=== PATIENT | female | born 1945 | race Caucasian/White ===

== ENCOUNTER → 2020-01-14 | Outpatient (CLI) | payer MEDICARE, OTHER ==
[~2020-01-14] MED LIST: EDARBYCLOR 40-1 EACH PO; LEVOTHYROXINE75 MCG PO; METOPROLOL TAR100 MG PO
--- NOTE | 2020-01-14 11:53 | Diagnostic Imaging Report ---
EXAMINATION: CHEST 2 VIEWS INDICATION: Renal malignancy COMPARISON: Chest radiograph 10/06/2019 FINDINGS: LINES/TUBES:None LUNGS:The lungs are well-inflated. No focal consolidation or pulmonary edema. PLEURA:No pleural effusion or pneumothorax. MEDIASTINUM:The cardiomediastinal silhouette appears normal in size and shape. BONES/SOFT TISSUES:No acute osseous injury. ABDOMEN:No free air under the diaphragm. IMPRESSION: No focal pneumonia or pulmonary edema. No radiographically apparent pulmonary nodule. Signed by: Moshe Myers MD on 01/14/2020 11:50 AM
--- NOTE | 2020-01-14 12:29 | Diagnostic Imaging Report ---
EXAM: Renal Ultrasound INDICATION: ^[id number] ^[id number] ^NEOPLASM OF LEFT KIDNEY COMPARISON: None TECHNIQUE: Transverse and longitudinal images of the kidneys and bladder were obtained. FINDINGS: Right Kidney: Length: 9.1 cm Appearance: Normal echogenicity. Collecting system: No hydronephrosis Stones: None Cyst/Mass: Peripelvic cysts measure up to 1.6cm Left Kidney: Length: 8.3 cm Appearance: Normal echogenicity. Collecting system: No hydronephrosis Stones: None Cyst/Mass: None Bladder: No mass or calculi. Bilateral ureteral jets visualized. Prevoid volume estimate of 33 cc. IMPRESSION: No hydronephrosis or renal calculi. Right peripelvic cysts and left simple cyst as above. Signed by: Moshe Myers MD on 01/14/2020 12:26 PM
== END ==
LOC: US 10:37
PROVIDERS: ATTEND Urology
DX: D41.02 Neoplasm of uncertain behavior of left kidney (principal)
CPT/HCPCS: 71046; 76770

== ENCOUNTER → 2020-04-01 | Outpatient (CLI) | payer MEDICARE, OTHER ==
--- NOTE | 2020-04-01 10:04 | Diagnostic Imaging Report ---
EXAMINATION: CHEST 2 VIEWS INDICATION: Renal malignancy COMPARISON: Chest radiograph 01/14/2020 FINDINGS: LINES/TUBES:None LUNGS:The lungs are well-inflated. No focal consolidation or pulmonary edema. PLEURA:No pleural effusion or pneumothorax. MEDIASTINUM:The cardiomediastinal silhouette appears normal in size and shape. Atherosclerotic calcifications of the thoracic aorta. BONES/SOFT TISSUES:No acute osseous injury. ABDOMEN:No free air under the diaphragm. Surgical clips in the left abdomen. IMPRESSION: No focal pneumonia or pulmonary edema. Signed by: Moshe Myers MD on 04/01/2020 10:01 AM
--- NOTE | 2020-04-01 11:19 | Diagnostic Imaging Report ---
EXAM: Renal Ultrasound INDICATION: ^[id number] ^[id number] ^MALIGNANT NEOPLASM OF LEFT KIDNEY COMPARISON: Renal ultrasound 01/14/2020 TECHNIQUE: Transverse and longitudinal images of the kidneys and bladder were obtained. FINDINGS: Right Kidney: Size: 9.3 x 4.8 x 4.3 cm Echogenicity: Normal Parenchymal thickness: Normal Collecting system: No hydronephrosis Stones: None Cyst/Mass: Multiple parapelvic cysts, largest 1.1 x 0.7 x 1.1 cm Left Kidney: Size: 8.9 x 4.6 x 3.7 cm Echogenicity: Normal Parenchymal thickness: Normal Collecting system: No hydronephrosis Stones: None Cyst/Mass: Partial obstructing the surgical change. Exophytic cyst measures 0.7 x 0.5 x 0.7 cm Bladder: Unremarkable IMPRESSION: Left partial nephrectomy surgical change. Bilateral renal cysts are unchanged when compared to the previous renal ultrasound. No solid renal mass. Signed by: Live Ma MD on 04/01/2020 11:15 AM
== END ==
LOC: US 09:32
PROVIDERS: ATTEND Urology
DX: C64.2 Malignant neoplasm of left kidney, except renal pelvis (principal)
CPT/HCPCS: 71046; 76770

== ENCOUNTER → 2020-07-26 | Outpatient (CLI) | payer MEDICARE, OTHER ==
--- NOTE | 2020-07-26 10:14 | Diagnostic Imaging Report ---
EXAMINATION: CHEST 2 VIEWS INDICATION: Renal malignancy COMPARISON: Chest radiograph 04/01/2020 FINDINGS: LINES/TUBES:None LUNGS:The lungs are well-inflated. Minimal biapical pleural parenchymal thickening/scarring. No focal pneumonia or pulmonary edema. No radiographically apparent pulmonary nodules. PLEURA:No pleural effusion or pneumothorax. MEDIASTINUM:The cardiomediastinal silhouette appears normal in size and shape. Atherosclerotic calcifications of the thoracic aorta. BONES/SOFT TISSUES:No acute osseous injury. ABDOMEN:No free air under the diaphragm. Surgical clips in the left abdomen. IMPRESSION: No focal pneumonia or pulmonary edema. No radiographically apparent pulmonary nodule. Signed by: Msohe Myers MD on 07/26/2020 10:10 AM
--- NOTE | 2020-07-26 10:28 | Diagnostic Imaging Report ---
EXAM: Renal Ultrasound INDICATION: ^MALIGNANT NEOPLASM OF LEFT KIDNEY COMPARISON: None TECHNIQUE: Transverse and longitudinal images of the kidneys and bladder were obtained. FINDINGS: Right Kidney: Length: 9.0 cm Appearance: Normal echogenicity. Collecting system: No hydronephrosis Stones: None Cyst/Mass: 1.0cm simple parapelvic cyst. Left Kidney: Length: 7.9 cm Appearance: Normal echogenicity. Collecting system: No hydronephrosis Stones: None Cyst/Mass: 0.8cm midpole simple cyst. Bladder: No mass or calculi. Left ureteral jet visualized. Prevoid volume estimate of 67 cc. IMPRESSION: No hydronephrosis or renal calculi. Bilateral simple renal cysts. Signed by: Moshe Myers MD on 07/26/2020 10:25 AM
== END ==
LOC: US 09:32
PROVIDERS: ATTEND Urology
DX: C64.2 Malignant neoplasm of left kidney, except renal pelvis (principal)
CPT/HCPCS: 71046; 76770

== ENCOUNTER → 2020-10-13 | Outpatient (CLI) | payer MEDICARE, OTHER | LOC: US 09:44 | PROVIDERS: ATTEND Urology | DX: C64.2 Malignant neoplasm of left kidney, except renal pelvis (principal) | CPT/HCPCS: 71046; 76770 ==

== ENCOUNTER → 2021-03-21 | Outpatient (CLI) | payer MEDICARE, OTHER | LOC: US 08:39 | PROVIDERS: ATTEND Urology | DX: C64.2 Malignant neoplasm of left kidney, except renal pelvis (principal) | CPT/HCPCS: 71046; 76770 ==

== ENCOUNTER → 2021-09-27 | Outpatient (CLI) | payer MEDICARE, OTHER | LOC: US 10:37 | PROVIDERS: ATTEND Urology | DX: C64.2 Malignant neoplasm of left kidney, except renal pelvis (principal) | CPT/HCPCS: 71046; 76770 ==

== ENCOUNTER → 2022-03-27 | Outpatient (CLI) | payer MEDICARE, OTHER | LOC: US 14:34 | PROVIDERS: ATTEND Urology | DX: C64.2 Malignant neoplasm of left kidney, except renal pelvis (principal) | CPT/HCPCS: 71046; 76770 ==

== ENCOUNTER → 2022-10-09 | Outpatient (CLI) | payer MEDICARE, OTHER | LOC: US 11:57 | PROVIDERS: ATTEND Urology | DX: C64.2 Malignant neoplasm of left kidney, except renal pelvis (principal); N18.9 Chronic kidney disease, unspecified; N28.1 Cyst of kidney, acquired | CPT/HCPCS: 71046; 76770 ==

== ENCOUNTER → 2023-04-03 | Outpatient (CLI) | payer MEDICARE | LOC: US 11:07 | PROVIDERS: ATTEND Urology | DX: C64.2 Malignant neoplasm of left kidney, except renal pelvis (principal) | CPT/HCPCS: 71046; 76770 ==

== ENCOUNTER → 2024-10-09 | Outpatient (REF) | payer MEDICARE | LOC: US 09:32 | PROVIDERS: ATTEND Urology | DX: C64.2 Malignant neoplasm of left kidney, except renal pelvis (principal) | CPT/HCPCS: 71046; 76770; 76857 ==